=== PATIENT | male | born 1965 | race African-American/Black ===

== ENCOUNTER 2018-10-10 08:31 | Outpatient (CLI) | payer BC | END 2018-10-10 23:59 | disposition home or self-care (01) | LOC: WOUND 08:31 | PROVIDERS: ATTEND Family Medicine | DX: E11.622 Type 2 diabetes mellitus with other skin ulcer (principal); I87.313 Chronic venous hypertension (idiopathic) with ulcer of bilateral lower extremity; L97.822 Non-pressure chronic ulcer of other part of left lower leg with fat layer exposed; L97.812 Non-pressure chronic ulcer of other part of right lower leg with fat layer exposed; Z79.4 Long term (current) use of insulin | CPT/HCPCS: 11042; 11045; 99205 ==

== ENCOUNTER 2018-10-17 14:37 | Outpatient (CLI) | payer BC | END 2018-10-17 23:59 | disposition home or self-care (01) | LOC: WOUND 14:37 | PROVIDERS: ATTEND Family Medicine | DX: E11.622 Type 2 diabetes mellitus with other skin ulcer (principal); I87.313 Chronic venous hypertension (idiopathic) with ulcer of bilateral lower extremity; L97.811 Non-pressure chronic ulcer of other part of right lower leg limited to breakdown of skin; L97.821 Non-pressure chronic ulcer of other part of left lower leg limited to breakdown of skin; Z79.4 Long term (current) use of insulin | CPT/HCPCS: 99215 ==

== ENCOUNTER 2018-10-17 16:10 | Inpatient (IN) | payer BC ==
[~2018-10-17] VITALS: Ht 185.4 cm; Wt 107.9 kg
[2018-10-21 14:10] VITALS: BP 171/102
== END 2018-10-21 17:10 | disposition home or self-care (01) | DRG 593 ==
LOC: 4NOR 16:20 → DCLOUNGE 10-21 16:57
PROVIDERS: ADMIT Internal Medicine; ATTEND Internal Medicine
DX: L97.829 Non-pressure chronic ulcer of other part of left lower leg with unspecified severity (principal); I82.91 Chronic embolism and thrombosis of unspecified vein; S81.802A Unspecified open wound, left lower leg, initial encounter; L97.819 Non-pressure chronic ulcer of other part of right lower leg with unspecified severity; S81.801A Unspecified open wound, right lower leg, initial encounter; I10 Essential (primary) hypertension; I87.8 Other specified disorders of veins; Z66 Do not resuscitate; M25.361 Other instability, right knee; M19.079 Primary osteoarthritis, unspecified ankle and foot; X58.XXXA Exposure to other specified factors, initial encounter; E11.51 Type 2 diabetes mellitus with diabetic peripheral angiopathy without gangrene; Y93.89 Activity, other specified; Y92.89 Other specified places as the place of occurrence of the external cause; Y99.8 Other external cause status; Z88.8 Allergy status to other drugs, medicaments and biological substances; M25.561 Pain in right knee
CPT/HCPCS: 36415; 80048; 80053; 80202; 82565; 82962; 83036; 83735; 84100; 84443; 85025; 87040; 93970; G0378; J1650; J3370; J0295; J1815; J2270; J7030; J7050

== ENCOUNTER 2018-10-24 13:40 | Outpatient (CLI) | payer BC | END 2018-10-24 23:59 | disposition home or self-care (01) | LOC: WOUND 13:40 | PROVIDERS: ATTEND Family Medicine | DX: E11.622 Type 2 diabetes mellitus with other skin ulcer (principal); I87.313 Chronic venous hypertension (idiopathic) with ulcer of bilateral lower extremity; L97.815 Non-pressure chronic ulcer of other part of right lower leg with muscle involvement without evidence of necrosis; L97.825 Non-pressure chronic ulcer of other part of left lower leg with muscle involvement without evidence of necrosis; E11.51 Type 2 diabetes mellitus with diabetic peripheral angiopathy without gangrene; M19.029 Primary osteoarthritis, unspecified elbow; Z79.4 Long term (current) use of insulin; Z88.8 Allergy status to other drugs, medicaments and biological substances | CPT/HCPCS: 11042; 11043; 11045; 11046 ==